=== PATIENT | female | born 1950 | race Caucasian/White ===

== ENCOUNTER 2020-04-09 16:08 | Observation (INO) | payer OTHER ==
[2020-04-09] MEDS ORDERED: dexAMETHasone 4 MG/ML VIAL ONE (16:51)
[2020-04-09 17:34] LABS: Basophils % 0.3 % (0-1.3); Hematocrit 33.6 % (36.0-45.0); Lymphocytes % 15.5 % (15.3-44.8); MPV 9.6 fL (7.6-11.3); RBC Red Blood Cell Count 5.31 M/uL (3.86-4.86)
[2020-04-09 17:38] LABS: Protime INR 0.97
[2020-04-09 17:50] LABS: ALT/SGPT 29 U/L (12-78); AST/SGOT 35 U/L (15-37); Alkaline Phosphatase 110 U/L (45-117); BUN Blood Urea Nitrogen 13 mg/dL (7-18); Bicarbonate 26 mmol/L (21-32); Bilirubin Direct < 0.1 mg/dL (0-0.2); Bilirubin Total 0.1 mg/dL (0.2-1.0); Ferritin 99.2 ng/mL (8-388); Glucose Level 121 mg/dL (74-106); Lipase 74 U/L (73-393); Potassium 4.2 mmol/L (3.5-5.1); Protein, Total 6.9 g/dL (6.4-8.2); Sodium Level 135 mmol/L (136-145); Troponin (Emerg Dept Use Only) < 0.02 ng/mL (0.0-0.045)
[2020-04-09 18:01] LABS: Urine Bacteria NONE SEEN /HPF (<20); Urine RBC <5 /HPF (NONE SEEN)
[2020-04-09 18:02] LABS: Urine Culture Reflex Order NOT NEEDED; Urine Mucus 1+ /HPF (NONE SEEN)
[2020-04-09 18:02] LABS: Urine Blood NEGATIVE (NEG); Urine Glucose NEGATIVE (NEG); Urine Protein TRACE (NEG)
--- NOTE | 2020-04-09 18:04 | RAD REPORT ---
EXAM DESCRIPTION: RAD - Chest Single View - 04/09/2020 5:37 pm CLINICAL HISTORY: DYSPNEA Chest pain. COMPARISON: Chest Pa And Lat (2 Views) dated 07/09/2019; Chest Pa And Lat (2 Views) dated 09/24/2018; C HEST PA AND LAT 2 VIEW dated 09/24/2012; CHEST PA AND LAT 2 VIEW dated 08/30/2000 FINDINGS: Portable technique limits examination quality. Bilateral interstitial lung prominence is seen which may indicate interstitial pneumonia/bronchitis. The heart is mildly prominent. No displaced fractures.
--- NOTE | 2020-04-09 18:55 | ER ---
Nurse's Notes [facility] Bety Name: Jillian Dunn Age: 69 yrs Sex: Female : 1950 Arrival Date: 04/09/2020 Time: 16:09 Bed 8 Private MD: Diagnosis: Shortness of breath;Respiratory failure, unspecified with hypoxia;Coronavirus as the cause of diseases classified elsewhere;Coronavirus infection, unspecified Presentation: 04/09 16:22 Chief complaint: Patient states: "I am COVID + since Monday and I was at my PCP's jd3 office when my oxygen dropped into the upper 80's. I don't have any pain, just short of breath.". Coronavirus screen: difficulty breathing, fever, Client presents with at least one sign or symptom that may indicate coronavirus-19. Standard/surgical mask placed on the client. Provider contacted for isolation considerations. Client reports previous positive COVID test result. pt received results on Monday04/05/20. Ebola Screen: Patient negative for fever greater than or equal to 101.5 degrees Fahrenheit, and additional compatible Ebola Virus Disease symptoms. Initial Sepsis Screen: Does the patient meet any 2 criteria? No. Patient's initial sepsis screen is negative. Does the patient have a suspected source of infection? No. Patient's initial sepsis screen is negative. Risk Assessment: Do you want to hurt yourself or someone else? Patient reports no desire to harm self or others. Onset of symptoms was April 05, 2020. 16:22 Method Of Arrival: Wheelchair jd3 16:22 Acuity: JEROME 3 jd3 Triage Assessment: 16:30 General: Appears distressed, uncomfortable, obese, Behavior is cooperative, appropriate bp for age, anxious. Pain: Denies pain. EENT: No deficits noted. Neuro: No deficits noted. Cardiovascular: No deficits noted. Respiratory: Reports shortness of breath Onset: The symptoms/episode began/occurred yesterday, the patient has mild shortness of breath. GI: No signs and/or symptoms were reported involving the gastrointestinal system. : No signs and/or symptoms were reported regarding the genitourinary system. Derm: No deficits noted. Musculoskeletal: No deficits noted. Historical: - Allergies: 16:26 No Known Allergies; jd3 - Home Meds: 16:26 Dilantin Oral [Active]; Depakote Oral [Active]; Synthroid Oral [Active]; Metformin Oral jd3 [Active]; losartan oral oral [Active]; Celebrex Oral [Active]; - PMHx: 16:26 Seizures; Diabetes - NIDDM; Hypertension; Hypothyroidism; Arthritis; jd3 - PSHx: 16:26 ovarian surgery; back surgery; foot repair; adhesion repair; jd3 - Immunization history:: Adult Immunizations up to date. - Social history:: Smoking status: Patient denies any tobacco usage or history of. Screenin:30 Abuse screen: Denies threats or abuse. Denies injuries from another. Nutritional bp screening: No deficits noted. Tuberculosis screening: No symptoms or risk factors identified. Fall Risk None identified. Assessment: 17:30 Reassessment: PT STATES UNABLE TO URINATE DESPITE ATTEMPT ON B/S COMMODE. SIMONS PENDING.bp 17:30 Pain: Denies pain. Cardiovascular: Rhythm is sinus rhythm. Respiratory: Airway is bp patent Respiratory effort is even, labored, Breath sounds are coarse bilaterally. 18:30 Reassessment: Patient appears in no apparent distress at this time. Patient and/or bp family updated on plan of care and expected duration. Pain level reassessed. Patient is alert, oriented x 3, equal unlabored respirations, skin warm/dry/pink. SIMONS IN PLACE AND DRAINING TO GRAVITY. Vital Signs: 16:26 BP 154 / 60; Pulse 97; Resp 25 S; Temp 97.9(O); Pulse Ox 97% on R/A; Weight 117.93 kg jd3 (R); Height 5 ft. 5 in. (165.10 cm) (R); Pain 0/10; 17:30 BP 116 / 61; Pulse 91; Resp 17; Pulse Ox 94% on R/A; bp 18:27 BP 111 / 56; Pulse 85; Resp 18; Temp 99.2(O); Pulse Ox 94% on R/A; mh5 19:00 Pulse 115; Resp 24; Pulse Ox 90% on R/A; bp 16:26 Body Mass Index 43.27 (117.93 kg, 165.10 cm) jd3 19:00 WHILE AMBULATING bp ED Course: 16:09 Patient arrived in ED. as 16:11 Blaine Jones MD is Attending Physician. kdr 16:22 Franky Keyes, RN is Primary Nurse. bp 16:24 Triage completed. jd3 16:27 Arm band placed on. jd3 17:05 Inserted saline lock: 22 gauge in left wrist, using aseptic technique. bp 17:30 Patient has correct armband on for positive identification. Placed in gown. Bed in low mh5 position. Call light in reach. Side rails up X 1. Pillow given. property assessment monitor on. Pulse ox on. Sitter at bedside. 17:37 CXR XRAY In Process Unspecified. EDMS 18:23 Simons cath inserted, using sterile technique, 16 Fr., by md, urine specimen collected. 5 18:23 Urine collected: EKG done, by ED staff, reviewed by Blaine Jones MD. [facility] 18:54 Edgardo Dickinson is Hospitalizing Provider. kdr Administered Medications: 17:05 Drug: Decadron - Dexamethasone 6 mg Route: IVP; Site: left wrist; bp 17:35 Follow up: Response: No adverse reaction bp Outcome: 18:55 Decision to Hospitalize by Provider. kdr 20:25 Admitted to ICU accompanied by tech, via stretcher, room 6, with chart, Report called sg to Vandana RN 20:25 Condition: stable 20:25 Instructed on the need for admit, safety practices. 20:36 Patient left the ED. mg2 Signatures: Dispatcher [employer] EDMS Jonathan Cabrera, RN Blaine Grossman MD MD [facility] Katia Brock Maria [facility] Alex Roach RN RN jd3 Peltier, Brian, RN RN Ranulfo Robertson RN RN mg2
--- NOTE | 2020-04-09 18:56 | EDPHYS ---
Physician Documentation [facility] Name: Jillian uDnn Age: 69 yrs Sex: Female : 1950 Arrival Date: 04/09/2020 Time: 16:09 Bed 8 Private MD: ED Physician Blaine Jones HPI: 04/09 18:57 This 69 yrs old Female presents to ER via Wheelchair with complaints of kdr Shortness Of Breath - covid+. 18:57 The patient has shortness of breath at rest, with light activity. Onset: The kdr symptoms/episode began/occurred gradually, 1 week(s) ago. Duration: The symptoms are continuous, and are steadily getting worse. The patient's shortness of breath is aggravated by exertion, light activity, talking, walking. Associated signs and symptoms: Pertinent positives: fever. Severity of symptoms: At their worst the symptoms were moderate in the emergency department the symptoms are unchanged are worse mildly. The patient has not experienced similar symptoms in the past. The patient tested positive for COVID last Monday and has been feeling steadily worse since the onset of her SOB about a week ago. She had returned to Dr. Roman's office today and was noted to have an O2 sat in the 80's. She was sent to the ED for further evaluation and treatment. Historical: - Allergies: 16:26 No Known Allergies; jd3 - Home Meds: 16:26 Dilantin Oral [Active]; Depakote Oral [Active]; Synthroid Oral [Active]; Metformin Oral jd3 [Active]; losartan oral oral [Active]; Celebrex Oral [Active]; - PMHx: 16:26 Seizures; Diabetes - NIDDM; Hypertension; Hypothyroidism; Arthritis; jd3 - PSHx: 16:26 ovarian surgery; back surgery; foot repair; adhesion repair; jd3 - Immunization history:: Adult Immunizations up to date. - Social history:: Smoking status: Patient denies any tobacco usage or history of. ROS: 19:01 Constitutional: Negative for fever, chills, and weight loss, Eyes: Negative for injury, kdr pain, redness, and discharge, Neck: Negative for injury, pain, and swelling, Cardiovascular: Negative for chest pain, palpitations, and edema, Abdomen/GI: Negative for abdominal pain, nausea, vomiting, diarrhea, and constipation, Back: Negative for injury and pain, : Negative for injury, bleeding, discharge, and swelling, MS/Extremity: Negative for injury and deformity, Skin: Negative for injury, rash, and discoloration, Neuro: Negative for headache, weakness, numbness, tingling, and seizure activity. Psych: Negative for depression, anxiety, suicide ideation, homicidal ideation, and hallucinations, Allergy/Immunology: Negative for hives, rash, and allergies, Endocrine: Negative for neck swelling, polydipsia, polyuria, polyphagia, and marked weight changes, Hematologic/Lymphatic: Negative for swollen nodes, abnormal bleeding, and unusual bruising. 19:01 ENT: Negative for injury, pain, and discharge. 19:01 Respiratory: Positive for cough, dyspnea on exertion, shortness of breath, Negative for hemoptysis, orthopnea, pleurisy, wheezing. Exam: 18:46 ECG was reviewed by the Attending Physician. kdr 19:01 Constitutional: This is a well developed, well nourished patient who is awake, alert, kdr and in no acute distress. Head/Face: Normocephalic, atraumatic. Eyes: Pupils equal round and reactive to light, extra-ocular motions intact. Lids and lashes normal. Conjunctiva and sclera are non-icteric and not injected. Cornea within normal limits. Periorbital areas with no swelling, redness, or edema. Neck: Trachea midline, no thyromegaly or masses palpated, and no cervical lymphadenopathy. Supple, full range of motion without nuchal rigidity, or vertebral point tenderness. No Meningismus. Chest/axilla: Normal chest wall appearance and motion. Nontender with no deformity. No lesions are appreciated. Cardiovascular: Regular rate and rhythm with a normal S1 and S2. No gallops, murmurs, or rubs. Normal PMI, no JVD. No pulse deficits. Abdomen/GI: Soft, non-tender, with normal bowel sounds. No distension or tympany. No guarding or rebound. No evidence of tenderness throughout. Back: No spinal tenderness. No costovertebral tenderness. Full range of motion. Skin: Warm, dry with normal turgor. Normal color with no rashes, no lesions, and no evidence of cellulitis. MS/ Extremity: Pulses equal, no cyanosis. Neurovascular intact. Full, normal range of motion. Neuro: Awake and alert, GCS 15, oriented to person, place, time, and situation. Cranial nerves II-XII grossly intact. Motor strength 5/5 in all extremities. Sensory grossly intact. Cerebellar exam normal. Normal gait. Psych: Awake, alert, with orientation to person, place and time. Behavior, mood, and affect are within normal limits. 19:01 Respiratory: mild respiratory distress is noted, Respirations: labored breathing, that is mild, tachypnea, that is mild. Vital Signs: 16:26 BP 154 / 60; Pulse 97; Resp 25 S; Temp 97.9(O); Pulse Ox 97% on R/A; Weight 117.93 kg jd3 (R); Height 5 ft. 5 in. (165.10 cm) (R); Pain 0/10; 17:30 BP 116 / 61; Pulse 91; Resp 17; Pulse Ox 94% on R/A; bp 18:27 BP 111 / 56; Pulse 85; Resp 18; Temp 99.2(O); Pulse Ox 94% on R/A; mh5 19:00 Pulse 115; Resp 24; Pulse Ox 90% on R/A; bp 16:26 Body Mass Index 43.27 (117.93 kg, 165.10 cm) jd3 19:00 WHILE AMBULATING bp MDM: 18:55 Patient medically screened. kdr 19:01 Data reviewed: vital signs, nurses notes, lab test result(s), radiologic studies. kdr Counseling: I had a detailed discussion with the patient and/or guardian regarding: the historical points, exam findings, and any diagnostic results supporting the discharge/admit diagnosis, lab results, radiology results, the need for further work-up and treatment in the hospital. 04/09 16:12 Order name: Blood Culture Adult (2) kdr 04/09 16:12 Order name: BMP; Complete Time: 18:47 kdr 04/09 16:12 Order name: C-Reactive Protein; Complete Time: 18:47 kdr 04/09 16:12 Order name: CBC with Diff kdr 04/09 16:12 Order name: COVID-19 kdr 04/09 16:12 Order name: D-Dimer; Complete Time: 18:47 kdr 04/09 16:12 Order name: Ferritin; Complete Time: 18:47 kdr 04/09 16:12 Order name: Flu; Complete Time: 18:47 kdr 04/09 16:12 Order name: Lactate; Complete Time: 18:47 kdr 04/09 16:12 Order name: LFT's; Complete Time: 18:47 kdr 04/09 16:12 Order name: Lipase; Complete Time: 18:47 kdr 04/09 16:12 Order name: Procalcitonin; Complete Time: 18:47 kdr 04/09 16:12 Order name: PT-INR; Complete Time: 18:47 kdr 04/09 16:12 Order name: Ptt, Activated; Complete Time: 18:47 kdr 04/09 16:12 Order name: Strep; Complete Time: 18:47 kdr 04/09 16:12 Order name: Troponin (emerg Dept Use Only); Complete Time: 18:47 kdr 04/09 16:12 Order name: Urine Microscopic Only; Complete Time: 18:47 kdr 04/09 16:12 Order name: CXR XRAY; Complete Time: 18:47 kdr 04/09 16:12 Order name: EKG; Complete Time: 16:13 kdr 04/09 16:12 Order name: Cardiac monitoring; Complete Time: 16:35 kdr 04/09 16:12 Order name: Document PUI#; Complete Time: 16:35 kdr 04/09 16:12 Order name: Droplet/Contact Precautions; Complete Time: 16:35 kdr 04/09 16:12 Order name: EKG - Nurse/Tech; Complete Time: 16:58 kdr 04/09 16:12 Order name: Aldrich; Complete Time: 18:07 [facility] 04/09 16:12 Order name: IV Start; Complete Time: 17:35 kdr 04/09 17:53 Order name: Urine Dipstick--Ancillary (enter results); Complete Time: 18:47 em1 04/09 18:02 Order name: Throat Culture [facility] 04/09 19:39 Order name: CONS Physician Consult [facility] 04/09 19:49 Order name: CBC Smear Scan [facility] 04/09 16:12 Order name: Labs collected and sent; Complete Time: 17:35 kdr 04/09 16:12 Order name: Notify Health Dept [phone]/ ; Complete Time: 17:35 [facility] 04/09 16:12 Order name: O2 Per Protocol; Complete Time: 16:35 kdr 04/09 16:12 Order name: O2 Sat Monitoring; Complete Time: 16:35 kdr 04/09 16:12 Order name: Urine Dipstick-Ancillary (obtain specimen); Complete Time: 17:51 kdr EC:46 Rate is 89 beats/min. Rhythm is regular, Sinus Rhythm with No ectopy. QRS [place] is kdr Normal. [place] interval is normal. QRS interval is normal. Clinical impression: NSR w/ Non-specific ST/T Changes. Administered Medications: 17:05 Drug: Decadron - Dexamethasone 6 mg Route: IVP; Site: left wrist; bp 17:35 Follow up: Response: No adverse reaction bp Disposition: 04/09/20 18:55 Hospitalization ordered by Edgardo Dickinson for Observation. Preliminary diagnosis are Shortness of breath, Respiratory failure, unspecified with hypoxia, Coronavirus as the cause of diseases classified elsewhere, Coronavirus infection, unspecified. - Bed requested for Intensive Care Unit. - Status is Observation. mg2 - Condition is Fair. - Problem is an ongoing problem. - Symptoms have improved. Signatures: Dispatcher [employer] EDUT Sheila Thompson RN RN mw Rittger, Kevin, MD MD kdr Alex Roach RN RN jFranky Figueroa RN RN bp Ranulfo Munoz RN RN mg2 Corrections: (The following items were deleted from the chart) 19:45 18:55 Hospitalization Ordered by Edgardo Dickinson for Observation. Preliminary diagnosis mw is Shortness of breath; Respiratory failure, unspecified with hypoxia; Coronavirus as the cause of diseases classified elsewhere; Coronavirus infection, unspecified. Bed requested for Telemetry/MedSurg (observation). Status is Observation. Condition is Fair. Problem is an ongoing problem. Symptoms have improved. kdr 20:36 19:45 04/09/2020 18:55 Hospitalization Ordered by Edgardo Dickinson for Observation. mg2 Preliminary diagnosis is Shortness of breath; Respiratory failure, unspecified with hypoxia; Coronavirus as the cause of diseases classified elsewhere; Coronavirus infection, unspecified. Bed requested for Intensive Care Unit. Status is Observation. Condition is Fair. Problem is an ongoing problem. Symptoms have improved. mw
[2020-04-09 19:49] LABS: Anisocytosis 1+; Blood Morphology Comment NOTED (NOT SEEN); Hypochromasia 1+; Ovalocytes SLIGHT; Poikilocytosis 1+
[2020-04-09 19:50] LABS: Platelet Estimate ADEQ; Teardrop Cell FEW; White Blood Cell Scan OK (OK)
[2020-04-09] MEDS ORDERED: D50W 25 GM/50 ML SYRINGE/VIAL IV PRN (20:46)
[2020-04-09] MEDS ORDERED: ACETAMINOPHEN 500 MG TAB PO PRN (20:46)
[2020-04-09] MEDS ORDERED: GLUCAGON 1 MG/VIAL IM PRN (20:46)
[2020-04-09] MEDS ORDERED: ONDANSETRON 4 MG/2 ML VIAL IV PRN (20:46)
[2020-04-09] MEDS: INSULIN -REGULAR HUMAN 50 UNIT/0.5 ML ML SQ SCH (21:00)
[2020-04-09] MEDS ORDERED: DIPHENHYDRAMINE 25 MG TAB/CAP PO ONE (21:42)
[2020-04-09 21:44] VITALS: BMI 43.6
[2020-04-09] MEDS: ALBUTEROL 2.5 MG/3 ML NEB SOL NEB SCH (23:20)
[2020-04-10] MEDS ORDERED: METHYLPREDNISOLONE 40 MG INJ IV SCH (01:00)
--- NOTE | 2020-04-10 01:02 | P.HP ---
Certification for Inpatient Patient admitted to: Observation With expected LOS: <2 Midnights Patient will require the following post-hospital care: None Practitioner: I am a practitioner with admitting privileges, knowledge of patient current condition, hospital course, and medical plan of care. Services: Services provided to patient in accordance with Admission requirements found in Title 42 Section 412.3 of the Code of Federal Regulations Patient History Date of Service: 04/10/20 Reason for admission: COVID pneumonia, hypoxia History of Present Illness: This is a 69-year-old female who presented to the emergency room with a progressive 1 week history of cough, shortness of breath, fever. Patient has a history of seizures, diabetes, blood pressure, hypothyroidism, arthritis. Patient was tested by her primary care provider for covid and was found to be positive. Patient came to the emergency room for worsening of symptoms. Patient was 90% on room air with exertion and would drop occasionally into the 80s. Patient stated that she had been dropping in the 80s at home as well. Patient denies any GI symptoms. Stated that she does have some slight chest tightness as well. Patient was given steroids and antibiotics by PCP which she has been taking. Allergies No Known Allergies Allergy (Unverified 04/09/20 19:20) Home medications list reviewed: Yes Home Medications: Albuterol Sulfate [Proair Respiclick] 2 puff IH QIDP PRN 04/09/20 Azithromycin Tab [Zithromax*] 250 mg PO DAILY 04/09/20 Bimatoprost [Lumigan] 1 drop OP BEDTIME 04/09/20 Celecoxib [Celebrex] 200 mg PO DAILY WITH BREAKFAST 04/09/20 Divalproex Sodium [Depakote] 750 mg PO BEDTIME 04/09/20 Divalproex [Depakote Delayed Release*] 500 mg PO DAILY 04/09/20 Ergocalciferol (Vitamin D2) [Vitamin D2] 50,000 unit PO EVERY 7TH DAY 04/09/20 Famotidine 20 mg PO BEDTIME 04/09/20 Fluticasone/Umeclidin/Vilanter [Trelegy Ellipta 100-62.5-25] 1 puff IH DAILY 04/09/20 Irbesartan [Avapro] 300 mg PO DAILY 04/09/20 Levothyroxine Sodium [Synthroid] 137 mcg PO [id number] 04/09/20 Liothyronine Sodium [Cytomel] 10 mcg PO DAILY 04/09/20 Metformin HCl 500 mg PO BEDTIME 04/09/20 Montelukast [Singulair] 10 mg PO BEDTIME 04/09/20 Phenytoin Sodium Extended 100 mg PO TID 04/09/20 Spironolactone [Aldactone] 100 mg PO DAILY 04/09/20 - Past Medical/Surgical History Has patient received pneumonia vaccine in the past: Yes Diabetic: Yes -: Seizures -: NIDDM -: HTN -: Hypothyroid -: arthritis -: ovarian sx -: back sx -: foot repair -: adhesions repair -: cataract sx - Social History Smoking Status: Never smoker Smoking therapy provided: No Alcohol use: No CD- Drugs: No Caffeine use: Yes Place of Residence: Home Review of Systems General: Fever, Chills, Malaise Eyes: Unremarkable ENT: Unremarkable Respiratory: Shortness of Breath, SOB with Excertion Cardiovascular: Chest Pain Gastrointestinal: Unremarkable Genitourinary: Unremarkable Musculoskeletal: Unremarkable Integumentary: Unremarkable Neurological: Unremarkable Lymphatics: Unremarkable Physical Examination - Vital Signs Temperature: 97.1 F Blood Pressure: 114/51 Pulse: 84 Respirations: 24 Pulse Ox (%): 91 - Physical Exam General: Alert, In no apparent distress, Oriented x3 HEENT: PERRLA, Mucous membr. moist/pink, EOMI Neck: 2+ carotid pulse no bruit, JVD not distended, No Thyromegaly Respiratory: Clear to auscultation bilaterally, Normal air movement Cardiovascular: No edema, Normal pulses, Regular rate/rhythm, Normal S1 S2, No gallops, No rubs, No murmurs Capillary refill: <2 Seconds Gastrointestinal: Normal bowel sounds, Soft and benign, Non-distended, No ascites, No tenderness, No masses, No rebound, No guarding Musculoskeletal: No clubbing, No swelling, No contractures, No erythema, No tenderness, No warmth Integumentary: No rashes, No breakdown, No significant lesion, No tenderness/swelling, No erythema, No warmth, No cyanosis Neurological: Normal speech, Normal strength at 5/5 x4 extr, Normal tone, Sensation intact, Cranial nerves 3-12 intact, Normal affect Lymphatics: No axilla or inguinal lymphadenopathy - Studies Laboratory Data (last 24 hrs) 04/09/20 17:05: PT 11.4, INR 0.97, APTT 28.0 04/09/20 17:05: WBC 6.2, Hgb 10.8 L, Hct 33.6 L, Plt Count 144 L 04/09/20 17:05: Sodium 135 L, Potassium 4.2, BUN 13, Creatinine 0.69, Glucose 121 H, Total Bilirubin 0.1 L, AST 35, ALT 29, Alkaline Phosphatase 110, Lipase 74 Microbiology Data (last 24 hrs): 04/09/20 17:05 Nasopharnyx Influenza Type A Antigen Screen - Final 04/09/20 17:05 Nasopharnyx Influenza Type B Antigen Screen - Final 04/09/20 17:05 Throat Group A Streptococcus Rapid Screen - Final Assessment and Plan - Problems (Diagnosis) (1) Hypertension Current Visit: Yes Status: Chronic Plan: Patient's vital signs will be monitored on blood pressure medicine will be given as needed for hypertension with a systolic blood pressure greater than 160 diastolic greater than 100. Qualifiers: Hypertension type: essential hypertension Qualified Code(s): I10 - Essential (primary) hypertension (2) Type 2 diabetes mellitus Current Visit: Yes Status: Chronic Plan: Patient put on sliding scale for diabetes. We will have tight glucose control and she will be receiving steroids for elevated related hypoxia. Qualifiers: Diabetes mellitus snf insulin use: with buttermaker continuous churn use Diabetes mellitus complication status: without complication Qualified Code(s): E11.9 - Type 2 diabetes mellitus without complications; Z79.4 - terminal press operator (current) use of insulin (3) Seizures Current Visit: Yes Status: Chronic Plan: Will continue patient's antiepileptics wall in our care. Will monitor for seizures. Patient has not had a seizure in several years. (4) Hypoxia Current Visit: Yes Status: Acute Plan: Patient placed on oxygen and will be monitored with SpO2 monitoring and telemetry. Patient has covid with hypoxia. Steroids had been started along with breathing treatments as necessary for shortness of breath. Dr. Nuñez has been consulted for further treatment for covid pneumonia (5) COVID-19 Current Visit: Yes Status: Acute Plan: Patient be treated with steroids and supplemental oxygenation at this time. I do not believe that patient needs remdisivir at this time but Dr. Pike can make further determination on this as he will be consulted. (6) Dyspnea Current Visit: Yes Status: Acute Qualifiers: Dyspnea type: shortness of breath Qualified Code(s): R06.02 - Shortness of breath; R06.00 - Dyspnea, unspecified; R06.01 - Orthopnea Discharge Plan: Home Plan to discharge in: 24 Hours - Advance Directives Does patient have a Living Will: No Does patient have a Durable POA for Healthcare: No - Code Status/Comfort Care Code Status Assessed: Yes Code Status: Full Code Critical Care: No Time Spent Managing Pts Care (In Minutes): 60
[2020-04-10] MEDS: ALBUTEROL 2.5 MG/3 ML NEB SOL NEB SCH ×3 (02:10→12:55)
[2020-04-10 04:47] LABS: BUN Blood Urea Nitrogen 15 mg/dL (7-18); Bicarbonate 27 mmol/L (21-32); Creatine Phosphokinase 82 U/L (26-192); Glucose Level 174 mg/dL (74-106); Potassium 4.4 mmol/L (3.5-5.1); Sodium Level 132 mmol/L (136-145)
[2020-04-10 04:50] LABS: Absolute Lymphocytes (CBC) 0.7 K/uL (0.7-4.9); Basophils % 0.6 % (0-1.3); Hematocrit 32.7 % (36.0-45.0); Lymphocytes % 12.9 % (15.3-44.8); MPV 9.6 fL (7.6-11.3); RBC Red Blood Cell Count 5.15 M/uL (3.86-4.86)
[2020-04-10] MEDS: INSULIN -REGULAR HUMAN 50 UNIT/0.5 ML ML SQ SCH ×2 (07:30→11:30)
[2020-04-10] MEDS ORDERED: dexAMETHasone 10 MG/ML VIAL IV SCH (09:00)
[2020-04-10] MEDS ORDERED: DIVALPROEX DR 250 MG TAB PO SCH (09:00)
[2020-04-10] MEDS ORDERED: PHENYTOIN ER 100 MG CAP PO SCH (09:00)
[2020-04-10] MEDS ORDERED: AZITHROMYCIN 250 MG TAB PO SCH ×2 (09:00→21:00)
--- NOTE | 2020-04-10 10:53 | P.CNS ---
Date of Consult: 04/10/20 (Telephone visit) Chief Complaint: COVID pneumonia, hypoxia History of Present Illness: Patient is 69 years of age admitted from the emergency room with 1 week history of cough shortness of breath and fever multiple medical problems tested positive for almeida virus he is currently doing well although she was hypoxic initially as sats are now satisfactory eyes any GI symptoms patient was taking steroids Allergies No Known Allergies Allergy (Unverified 04/09/20 19:20) Home Medications: Albuterol Sulfate [Proair Respiclick] 2 puff IH QIDP PRN 04/09/20 Azithromycin Tab [Zithromax*] 250 mg PO DAILY 04/09/20 Bimatoprost [Lumigan] 1 drop OP BEDTIME 04/09/20 Celecoxib [Celebrex] 200 mg PO DAILY WITH BREAKFAST 04/09/20 Divalproex Sodium [Depakote] 750 mg PO BEDTIME 04/09/20 Divalproex [Depakote Delayed Release*] 500 mg PO DAILY 04/09/20 Ergocalciferol (Vitamin D2) [Vitamin D2] 50,000 unit PO EVERY 7TH DAY 04/09/20 Famotidine 20 mg PO BEDTIME 04/09/20 Fluticasone/Umeclidin/Vilanter [Trelegy Ellipta 100-62.5-25] 1 puff IH DAILY 04/09/20 Irbesartan [Avapro] 300 mg PO DAILY 04/09/20 Levothyroxine Sodium [Synthroid] 137 mcg PO [id number] 04/09/20 Liothyronine Sodium [Cytomel] 10 mcg PO DAILY 04/09/20 Metformin HCl 500 mg PO BEDTIME 04/09/20 Montelukast [Singulair] 10 mg PO BEDTIME 04/09/20 Phenytoin Sodium Extended 100 mg PO TID 04/09/20 Spironolactone [Aldactone] 100 mg PO DAILY 04/09/20 - Past Medical/Surgical History Diabetic: Yes -: Seizures -: NIDDM -: HTN -: Hypothyroid -: arthritis -: ovarian sx -: back sx -: foot repair -: adhesions repair -: cataract sx - Social History Alcohol use: No CD- Drugs: No Caffeine use: Yes Place of Residence: Home Physical Examination Temp Pulse Resp BP Pulse Ox 97 F 81 25 H 117/62 96 04/10/20 04:00 04/10/20 08:00 04/10/20 08:00 04/10/20 08:00 04/10/20 08:00 Laboratory Data (last 24 hrs) 04/09/20 17:05: PT 11.4, INR 0.97, APTT 28.0 04/09/20 17:05: WBC 6.2, Hgb 10.8 L, Hct 33.6 L, Plt Count 144 L 04/09/20 17:05: Sodium 135 L, Potassium 4.2, BUN 13, Creatinine 0.69, Glucose 121 H, Total Bilirubin 0.1 L, AST 35, ALT 29, Alkaline Phosphatase 110, Lipase 74 - Problems (1) COVID-19 Current Visit: Yes Status: Acute Plan: Patient is 69 years of age admitted with almeida virus pneumonia chest x-ray shows some interstitial changes vital signs all stable patient does not qualify for home O2 chemistries and labs reviewed CRP is a little elevated 116 currently condition is stable discharge home on Decadron
--- NOTE | 2020-04-10 11:23 | P.DS ---
Admission Date: 04/09/20 Discharge Date: 04/10/20 Disposition: ROUTINE DISCHARGE Discharge Condition: GOOD Reason for Admission: COVID pneumonia, hypoxia Brief History of Present Illness: Please refer to H&P Hospital Course: Patient received dexamethasone upon admission and has done well throughout her hospital stay. No requirement for supplemental O2. She has some interstitial changes on her CXR but no severe disease. Her condition was not considered severe enough to warrant experimental drugs used for COVID 19 patients. Therefore, she will only be discharged on dexametahsone and multi vitamins plus zinc. Patient is to self-quarantine for at least 2 weeks until she is no longer symptomatic. Vital Signs/Physical Exam: Temp Pulse Resp BP Pulse Ox 97 F 81 25 H 117/62 96 04/10/20 04:00 04/10/20 08:00 04/10/20 08:00 04/10/20 08:00 04/10/20 08:00 General: In no apparent distress, Cooperative, Other HEENT: Atraumatic, Normocephalic, EOMI Neck: Supple Respiratory: Crackles/rales Gastrointestinal: Normal bowel sounds, Soft and benign, Non-distended, No tenderness Musculoskeletal: No clubbing, No swelling, No contractures, No erythema, No tenderness, No warmth Integumentary: No rashes, No breakdown, No significant lesion, No tenderness/swelling, No erythema, No warmth, No cyanosis Neurological: Normal speech, Sensation intact, Normal affect Laboratory Data at Discharge: WBC 5.7 K/uL (4.3-10.9) 04/10/20 04:01 Hgb 10.5 g/dL (12.0-15.0) L 04/10/20 04:01 Hct 32.7 % (36.0-45.0) L 04/10/20 04:01 Plt Count 120 K/uL (152-406) L 04/10/20 04:01 PT 11.4 SECONDS (9.5-12.5) 04/09/20 17:05 INR 0.97 04/09/20 17:05 APTT 28.0 SECONDS (24.3-36.9) 04/09/20 17:05 Sodium 132 mmol/L (136-145) L 04/10/20 04:01 Potassium 4.4 mmol/L (3.5-5.1) 04/10/20 04:01 BUN 15 mg/dL (7-18) 04/10/20 04:01 Creatinine 0.59 mg/dL (0.55-1.3) 04/10/20 04:01 Glucose 174 mg/dL (74-106) H 04/10/20 04:01 Total Bilirubin 0.1 mg/dL (0.2-1.0) L 04/09/20 17:05 AST 35 U/L (15-37) 04/09/20 17:05 ALT 29 U/L (12-78) 04/09/20 17:05 Alkaline Phosphatase 110 U/L (45-117) 04/09/20 17:05 Lipase 74 U/L (73-393) 04/09/20 17:05 Home Medications: Albuterol Sulfate [Proair Respiclick] 2 puff IH QIDP PRN 04/09/20 Azithromycin Tab [Zithromax*] 250 mg PO DAILY 04/09/20 Bimatoprost [Lumigan] 1 drop OP BEDTIME 04/09/20 Celecoxib [Celebrex] 200 mg PO DAILY WITH BREAKFAST 04/09/20 Divalproex Sodium [Depakote] 750 mg PO BEDTIME 04/09/20 Divalproex [Depakote Delayed Release*] 500 mg PO DAILY 04/09/20 Ergocalciferol (Vitamin D2) [Vitamin D2] 50,000 unit PO EVERY 7TH DAY 04/09/20 Famotidine 20 mg PO BEDTIME 04/09/20 Fluticasone/Umeclidin/Vilanter [Trelegy Ellipta 100-62.5-25] 1 puff IH DAILY 04/09/20 Irbesartan [Avapro] 300 mg PO DAILY 04/09/20 Levothyroxine Sodium [Synthroid] 137 mcg PO [id number] 04/09/20 Liothyronine Sodium [Cytomel] 10 mcg PO DAILY 04/09/20 Metformin HCl 500 mg PO BEDTIME 04/09/20 Montelukast [Singulair*] 10 mg PO BEDTIME 04/09/20 Phenytoin Sodium Extended 100 mg PO TID 04/09/20 Spironolactone [Aldactone*] 100 mg PO DAILY 04/09/20 Ascorbic Acid [Vitamin C] 500 mg PO DAILY #14 tablet.er 04/10/20 Dexamethasone [Decadron] 6 mg PO DAILY #14 tablet 04/10/20 Thiamine HCl [Vitamin B-1] 100 mg PO DAILY #14 tablet 04/10/20 Zinc Sulfate [Zinc Sulfate*] 220 mg PO DAILY #14 cap 04/10/20 New Medications: Dexamethasone [Decadron] 6 mg PO DAILY #14 tablet Thiamine HCl [Vitamin B-1] 100 mg PO DAILY #14 tablet Ascorbic Acid [Vitamin C] 500 mg PO DAILY #14 tablet.er Zinc Sulfate [Zinc Sulfate*] 220 mg PO DAILY #14 cap Diet: Regular Followup: Franky Roman MD [Primary Care Provider] -
[2020-04-10 13:27] VITALS: BP 120/69; TEMP 97.2
[2020-04-10 13:44] VITALS: O2SAT 95
[2020-04-10] MEDS ORDERED: DIVALPROEX DR 500MG TAB PO SCH (21:00)
[2020-04-10] MEDS ORDERED: ENOXAPARIN 40 MG/0.4 ML SQ SCH (21:00)
== END 2020-04-10 13:35 | disposition home or self-care (01) ==
LOC: ER 16:08 → ERHOLD 19:35 → 3RD-ICU 20:26
PROVIDERS: ADMIT Internal Medicine; ATTEND Internal Medicine
DX: U07.1 COVID-19 (principal); J12.89 Other viral pneumonia; R09.02 Hypoxemia; E11.9 Type 2 diabetes mellitus without complications; I10 Essential (primary) hypertension; E03.9 Hypothyroidism, unspecified; M19.90 Unspecified osteoarthritis, unspecified site; Z79.4 Long term (current) use of insulin; G40.909 Epilepsy, unspecified, not intractable, without status epilepticus
CPT/HCPCS: 93005; 87040 ×2; 87070; 85025 ×2; 80048 ×2; 36415; 82550; 85610; 82947 ×3; 85379; 80076; 87081; 83605; 85730; 84484; 82728; 83690; 84145; 86140; 87804 ×2; 71045; 94640; 51702; 96374; 99285; U0002; J1100 ×2; J2920; G0378 ×3; 81003; 81015

== ENCOUNTER 2024-05-17 07:25 | Emergency (ER) | payer OTHER ==
[2024-05-17] MEDS ORDERED: NA CHLORIDE 0.9% 1,000 ML ONE (07:59)
[2024-05-17] MEDS ORDERED: ONDANSETRON 4 MG/2 ML VIAL ONE ×2 (07:59→10:06)
[2024-05-17 08:15] LABS: Absolute Basophils 0.1 K/uL (0-0.5); Absolute Eosinophils 0.1 K/uL (0-0.5); Absolute Lymphocytes (CBC) 0.3 K/uL (0.7-4.9); Absolute Monocytes 0.3 K/uL (0.1-1.3); Absolute Neutrophil 11.8 K/uL (1.8-8.0); Basophils % 0.4 % (0-1.3); Eosinophils % 0.6 % (0-4.4); Hematocrit 37.8 % (36.0-45.0); Hemoglobin 11.9 g/dL (12.0-15.0); Lymphocytes % 2.7 % (15.3-44.8); MCH 20.8 pg (27.0-35.0); MCHC 31.3 g/dL (32.0-36.0); MCV 66.2 fL (80-100); MPV 8.8 fL (7.6-11.3); Monocytes % 2.4 % (3.3-12.3); Neutrophils % 93.9 % (41.7-73.7); Nucleated Red Blood Cells % 0.1 % (0-0); Platelets 209 thou/uL (152-406); RBC Red Blood Cell Count 5.71 M/uL (3.86-4.86); Red Cell Distribution Width 17.1 % (12.1-15.2)
[2024-05-17 08:28] LABS: Albumin 3.3 g/dL (3.4-5.0); Anion Gap 11.3 mEq/L (5.0-15.0); Bilirubin Total 0.4 mg/dL (0.2-1.0); Globulin 3.2 g/dL (2.3-3.5); Potassium 4.3 mEq/L (3.5-5.1); Protein, Total 6.5 g/dL (6.4-8.2); Troponin High Sensitivity 6.9 pg/mL (<58.9)
--- NOTE | 2024-05-17 08:52 | RAD REPORT ---
EXAMINATION: CT ABDOMEN AND PELVIS WITH CONTRAST CLINICAL INDICATION: Abdominal pain TECHNIQUE: CT abdomen and pelvis was performed, after the administration of 100 cc Isovue-300.. Sagit sherry and coronal reconstructions were obtained. One or more of the following dose reduction techniques were used: Automated exposure control, adjustment of the mA and kV according to patient si ze, and iterative reconstruction. Unless otherwise specified, incidental findings do not require dedicated imaging follow-up. [id number]. Oral contrast was not given which limits evaluation of bowel and appendix. COMPARISON: .None FINDINGS: 5.6 cm hepatic cyst. Additional smaller hepatic cysts are present. spleen, pancreas, adrenals and kidneys appear unremarkable No evidence of diverticulitis. Several loops of jejunum are fluid-filled and mildly dilated. The wall is thickened. Postsurgical changes lumbar spine with spondylosis. Mild gallbladder distention. The wall does not appear thickened : IMPRESSION: Several loops of jejunum are fluid-filled and mildly dilated. The wall is thickened. This may be seco ndary to inflammation. If the patient's symptoms persist follow-up abdominal plain film series would be recommended Mild gallbladder distention
[2024-05-17 08:54] LABS: Blood Morphology Comment NOTED (NOT SEEN); Hypochromasia 1+; Microcytosis 1+; Platelet Estimate ADEQ; White Blood Cell Scan OK (OK)
[2024-05-17 09:34] LABS: Specific Gravity > 1.030 (1.005-1.030); Urine Bilirubin NEGATIVE (Negative); Urine Blood Negative (Negative); Urine Clarity Clear (Clear); Urine Color Light-Yellow (Yellow); Urine Glucose NEGATIVE (Negative); Urine Ketones TRACE (Negative); Urine Microscopic Reflex YN NO UMIC; Urine Nitrite NEGATIVE (Negative); Urine Protein NEGATIVE (Negative); Urine Urobilinogen Normal (Normal); Urine pH 5.5 (5.0-7.0)
[2024-05-17] MEDS ORDERED: Levofloxacin500mg IV 500 MG/100 ML BAG IV ONE (09:44)
--- NOTE | 2024-05-17 09:59 | ER ---
Nurse's Notes [facility] Name: Jillian Dunn Age: 74 yrs Sex: Female : 1950 Arrival Date: 05/17/2024 Time: 07:25 Bed 8 Private MD: Diagnosis: Enteritis, diarrheal illness, leukocytosis, clinical dehydration Presentation: 05/17 07:48 Chief complaint: Patient states: abdominal pain, nausea/vomiting/diarrhea that began at aa5 midnight. Pt also states "I've also had sinus drainage and I had walking Pneumonia May 05". Coronavirus screen: diarrhea, nausea, vomiting. Ebola Screen: Patient denies travel to an Ebola-affected area in the 21 days before illness onset. Initial Sepsis Screen: Does the patient meet any 2 criteria? No. Patient's initial sepsis screen is negative. Does the patient have a suspected source of infection? No. Patient's initial sepsis screen is negative. Risk Assessment: Do you want to hurt yourself or someone else? Patient reports no desire to harm self or others. Onset of symptoms was May 17, 2024. 07:48 Method Of Arrival: Ambulatory aa5 07:48 Acuity: JEROME 3 aa5 Historical: - Allergies: 07:47 No Known Allergies; aa5 - PMHx: 07:47 Arthritis; Diabetes - NIDDM; Hypertension; Hypothyroidism; Seizures; Anemia; aa5 - PSHx: 07:47 ovarian cyst; aa5 - Immunization history:: Adult Immunizations unknown. - Infectious Disease History:: Denies. - Social history:: Smoking status: Patient denies any tobacco usage or history of. Screenin:12 [facility] ED Fall Risk Assessment (Adult) History of falling in the last 3 months, iw including since admission No falls in past 3 months (0 pts) Confusion or Disorientation No (0 pts) Intoxicated or Sedated No (0 pts) Impaired Gait No (0 pts) Mobility Assist Device Used No (0 pt) Altered Elimination No (0 pt) Score/Fall Risk Level 0 - 2 = Low Risk Oriented to surroundings. Abuse screen: Denies threats or abuse. Nutritional screening: No deficits noted. Tuberculosis screening: No symptoms or risk factors identified. Assessment: 08:12 General: Appears uncomfortable, Behavior is calm, cooperative. Pain: Complains of pain iw in abdomen. Neuro: Level of Consciousness is awake, alert, obeys commands, Oriented to person, place, time, situation, Moves all extremities. Cardiovascular: Patient's skin is warm and dry. Respiratory: Airway is patent Respiratory effort is even, unlabored, Respiratory pattern is regular, symmetrical. GI: Abdomen is round Abd is soft X 4 quads Reports upper abdominal pain, intolerance of fluids, intolerance of food, nausea, vomiting. Derm: Skin is intact, is fragile. Musculoskeletal: Range of motion: intact in all extremities. 09:52 Reassessment: pt requesting more nausea medicine. iw Vital Signs: 07:48 BP 148 / 66; Pulse 91; Resp 18 S; Temp 98.4(O); Pulse Ox 96% on R/A; Weight 95.25 kg aa5 (R); Height 5 ft. 5 in. (R); 07:48 Body Mass Index 34.95 (95.25 kg, 165.1 cm) aa5 ED Course: 07:27 Patient arrived in ED. [id number] 07:29 Paloma Marie MD is Attending Physician. sp3 07:45 Arm band placed on. aa5 07:49 Triage completed. aa5 07:50 Sadie Mansfield, RN is Primary Nurse. iw 08:04 Initial lab(s) drawn, by me, sent to lab. Inserted saline lock: 20 gauge in left iw antecubital area, using aseptic technique. Blood collected. Flushed with 10 mL NS. 08:16 EKG done, by ED staff, reviewed by Paloma Marie MD. em1 08:22 CT Abd/Pelvis - IV Contrast Only In Process Unspecified. EDMS Administered Medications: 08:09 Drug: NS 0.9% IV 1000 ml IV at 1 bolus Per protocol; to be given as a bolus over 60 iw minutes Route: IV; Rate: 1 bolus; Site: left antecubital; 09:15 Follow up: IV Status: Completed infusion iw 08:09 Drug: Ondansetron IVP 4 mg IVP once; over 2 minutes Route: IVP; Site: left antecubital; iw 08:30 Follow up: Response: No adverse reaction iw 09:51 Drug: levofloxacin IVPB 500 mg 100 ml IVPB once over 60 mins Volume: 100 ml; Route: iw IVPB; Infused Over: 60 mins; Site: left antecubital; 11:00 Follow up: IV Status: Completed infusion iw 10:14 Drug: Ondansetron IVP 4 mg IVP once; over 2 minutes Route: IVP; Site: left antecubital; iw 10:15 Follow up: Response: No adverse reaction; Marked relief of symptoms iw Outcome: 09:59 Discharge ordered by MD. brown 11:14 Patient left the ED. iw Signatures: Dispatcher [employer] EDSadie Zurita RN RN iw Martinez, Eric em1 Yael Mendoza RN RN aa5 Paloma Marie MD MD sp3 Janiya [email or web address] Corrections: (The following items were deleted from the chart) 07:50 07:48 Chief complaint: Patient states: abdominal pain, nausea/vomiting/diarrhea that aa5 began at midnight. aa5
--- NOTE | 2024-05-17 10:00 | EDPHYS ---
Physician Documentation [facility] Name: Jillian Dunn Age: 74 yrs Sex: Female : 1950 Arrival Date: 05/17/2024 Time: 07:25 Bed 8 Private MD: ED Physician Paloma Marie HPI: 05/17 08:12 This 74 yrs old Female presents to ER via Ambulatory with complaints of Nausea/Vomiting.sp3 08:12 74-year-old female with history of diabetes, arthritis, hypertension, prior seizures sp3 now presents to the ED with chief complaint abdominal cramping and vomiting since midnight last night. Positive sick contact and her who had similar symptoms. She denies any potential poor food intake or spoiled food. She denies headache, fever, URI symptoms, chest pain, shortness of breath, back pain, syncope, near syncope, bleeding, rash, or any other signs or symptoms on ROS at this time.. Historical: - Allergies: 07:47 No Known Allergies; aa5 - PMHx: 07:47 Arthritis; Diabetes - NIDDM; Hypertension; Hypothyroidism; Seizures; Anemia; aa5 - PSHx: 07:47 ovarian cyst; aa5 - Immunization history:: Adult Immunizations unknown. - Infectious Disease History:: Denies. - Social history:: Smoking status: Patient denies any tobacco usage or history of. ROS: 08:13 Constitutional: Negative for fever, chills, and weight loss, Eyes: Negative for injury, sp3 pain, redness, and discharge, ENT: Negative for injury, pain, and discharge, Neck: Negative for injury, pain, and swelling, Cardiovascular: Negative for chest pain, palpitations, and edema, Respiratory: Negative for shortness of breath, cough, wheezing, and pleuritic chest pain, Back: Negative for injury and pain, MS/Extremity: Negative for injury and deformity, Skin: Negative for injury, rash, and discoloration, Neuro: Negative for headache, weakness, numbness, tingling, and seizure, 08:13 All other systems are negative, Exam: 08:13 Constitutional: This is a well developed, well nourished patient who is awake, alert, sp3 and in no acute distress. Head/Face: Normocephalic, atraumatic. Eyes: Pupils equal round and reactive to light, extra-ocular motions intact. Lids and lashes normal. Conjunctiva and sclera are non-icteric and not injected. Cornea within normal limits. Periorbital areas with no swelling, redness, or edema. Neck: Trachea midline, no thyromegaly or masses palpated, and no cervical lymphadenopathy. Supple, full range of motion without nuchal rigidity, or vertebral point tenderness. No Meningismus. Chest/axilla: Normal chest wall appearance and motion. Nontender with no deformity. No lesions are appreciated. Cardiovascular: Regular rate and rhythm with a normal S1 and S2. No gallops, murmurs, or rubs. Normal PMI, no JVD. No pulse deficits. Respiratory: Lungs have equal breath sounds bilaterally, clear to auscultation and percussion. No rales, rhonchi or wheezes noted. No increased work of breathing, no retractions or nasal flaring. Back: No spinal tenderness. No costovertebral tenderness. Full range of motion. Skin: Warm, dry with normal turgor. Normal color with no rashes, no lesions, and no evidence of cellulitis. MS/ Extremity: Pulses equal, no cyanosis. Neurovascular intact. Full, normal range of motion. Neuro: Awake and alert, GCS 15, oriented to person, place, time, and situation. Cranial nerves II-XII grossly intact. Motor strength 5/5 in all extremities. Sensory grossly intact. Cerebellar exam normal. Normal gait. Psych: Awake, alert, with orientation to person, place and time. Behavior, mood, and affect are within normal limits. 08:13 Abdomen/GI: Mild pain to palpation diffusely. No peritoneal signs, rebound or guarding noted., 08:14 ECG was reviewed by the Attending Physician. EKG demonstrates normal sinus rhythm at 86 sp3 bpm with QTc at 562, normal QRS, normal axis, nonspecific diffuse ST/T-segment's without evidence of acute ischemia. Vital Signs: 07:48 BP 148 / 66; Pulse 91; Resp 18 S; Temp 98.4(O); Pulse Ox 96% on R/A; Weight 95.25 kg aa5 (R); Height 5 ft. 5 in. (R); 07:48 Body Mass Index 34.95 (95.25 kg, 165.1 cm) aa5 MDM: 07:45 Medical Screening Exam initiated sp3 08:17 Data reviewed: vital signs, nurses notes, lab test result(s), EKG, radiologic studies. sp3 ED course: 74-year-old female with PMH above now with vomiting and crampy abdominal pain. Differential diagnosis includes viral illness, foodborne illness, biliary pathology, pancreatitis, gastritis, GERD, and to a much lower degree acute coronary syndrome or other process. I am not highly suspicious of sepsis, shock, pathology, [employer] pathology, aortic/vascular pathology or any other critical process at this time. Workup will include CT scan of the abdomen pelvis with IV contrast, general labs, UA and general supportive care with IV fluids and ondansetron IV as needed. Disposition pending workup and patient course with probable discharge home with general supportive precautions and care.. 09:58 ED course: Patient improved with IV fluids and meds. WBC count 12,[address] sp3 demonstrates enteritis. Will discharge home on levofloxacin and Flagyl and ondansetron with PCP follow-up. 1 dose of Levaquin IV prior to discharge.. 05/17 07:46 Order name: CBC with Diff; Complete Time: 09:20 sp3 05/17 07:46 Order name: CMP; Complete Time: 09:20 sp3 05/17 07:46 Order name: Lipase; Complete Time: 09:20 sp3 05/17 07:46 Order name: Urinalysis w/ reflexes; Complete Time: 09:37 sp3 05/17 07:46 Order name: Lactate w/ 2H reflex if indic.; Complete Time: 09:20 sp3 05/17 07:46 Order name: Troponin High Sensitivity; Complete Time: 09:20 sp3 05/17 08:19 Order name: CBC Smear Scan; Complete Time: 09:20 EDMS 05/17 08:01 Order name: CT Abd/Pelvis - IV Contrast Only; Complete Time: 09:20 sp3 05/17 07:46 Order name: EKG; Complete Time: 07:47 sp3 05/17 07:46 Order name: IV Saline Lock; Complete Time: 07:59 sp3 05/17 07:46 Order name: Labs collected and sent; Complete Time: 07:59 sp3 05/17 07:46 Order name: EKG - Nurse/Tech; Complete Time: 08:14 sp3 Administered Medications: 08:09 Drug: NS 0.9% IV 1000 ml IV at 1 bolus Per protocol; to be given as a bolus over 60 iw minutes Route: IV; Rate: 1 bolus; Site: left antecubital; 09:15 Follow up: IV Status: Completed infusion iw 08:09 Drug: Ondansetron IVP 4 mg IVP once; over 2 minutes Route: IVP; Site: left antecubital; iw 08:30 Follow up: Response: No adverse reaction iw 09:51 Drug: levofloxacin IVPB 500 mg 100 ml IVPB once over 60 mins Volume: 100 ml; Route: iw IVPB; Infused Over: 60 mins; Site: left antecubital; 11:00 Follow up: IV Status: Completed infusion iw 10:14 Drug: Ondansetron IVP 4 mg IVP once; over 2 minutes Route: IVP; Site: left antecubital; iw 10:15 Follow up: Response: No adverse reaction; Marked relief of symptoms iw Disposition Summary: 05/17/24 09:59 Discharge Ordered Notes: Location: Home sp3 Condition: Stable sp3 Diagnosis - Enteritis, diarrheal illness, leukocytosis, clinical dehydration sp3 Followup: sp3 - With: Private Physician - When: Upon discharge from the Emergency Department - Reason: Continuance of care Discharge Instructions: - Discharge Summary Sheet sp3 - Diarrhea, Adult sp3 Forms: - Medication Reconciliation Form sp3 - Antibiotic Education sp3 - Prescription Opioid Use sp3 - Patient Portal Instructions sp3 - Leadership Thank You Letter sp3 Prescriptions: - Flagyl 500 mg Oral tablet - take 1 tablet ORAL route every 8 hours for 7 days; 21 tablet; Refills: 0, sp3 Product Selection Permitted - ondansetron 8 mg Oral Tablet,disintegrating - take 1 tablet ORAL route every 12 hours; 15 tablet; Refills: 0, Product sp3 Selection Permitted - levofloxacin 500 mg Oral tablet - take 1 tablet ORAL route once daily for 6 days; 6 tablet; Refills: 0, Product sp3 Selection Permitted Signatures: Dispatcher [employer] Sadie Lopez RN Yael Aguilar RN RN aa5 Paloma Marie MD MD sp3 Corrections: (The following items were deleted from the chart) 08:02 08:02 Abdomen Pelvis W [id number] ordered. EDMS EDMS
[2024-05-17 11:28] VITALS: BP 148/66; TEMP 98.4; O2SAT 96
== END 2024-05-17 11:14 | disposition home or self-care (01) ==
LOC: ER 07:25
DX: K52.9 Noninfective gastroenteritis and colitis, unspecified (principal); E86.0 Dehydration; D72.829 Elevated white blood cell count, unspecified; E11.9 Type 2 diabetes mellitus without complications; I10 Essential (primary) hypertension
CPT/HCPCS: 96365; 96361; 85025; 36415; 83605; 81003; 84484; 83690; 80053; 74177; 96375; 99284; Q9967; J2405 ×2; J7030